=== PATIENT | male | born 1985 | race Caucasian/White ===

== ENCOUNTER 2021-02-17 20:13 | Emergency (ER) | payer SELFPAY ==
[~2021-02-17] VITALS: Ht 170.2 cm; Wt 97.5 kg
[2021-02-17 20:34] VITALS: BP 126/79
--- NOTE | 2021-02-17 21:59 | NUR ---
ATTEMPTED TO CALL PT IN LOBBY AND OUTSIDE, NO RESPONSE.
--- NOTE | 2021-02-17 22:02 | NUR ---
CALLED PT'S PHONE NUMBER ON FILE, WELL THE "PERSON TO NOTIFY", NO RESPONSE.
--- NOTE | 2021-02-17 22:06 | NUR ---
PT BROUGHT BACK FROM RADIOLOGY VIA W/C TO CHAIR [place].
[2021-02-17] MEDS ORDERED: AMOXIL/CLAVULANATE 875/125 MG 1 TAB PO ONE (23:25)
[2021-02-17] MEDS ORDERED: AMOX-1000 PO (23:29)
--- NOTE | 2021-02-17 23:30 | NUR ---
PT CLEARED FOR DISCHARGE BY DR. MAGANA. AT TIME OF DISCHARGE PT UNABLE TO BE FOUND IN CHAIR, LOBBY OR OUTSIDE. PT LEFT FACILITY WITHOUT DISCHARGE INSTRUCTIONS.
== END 2021-02-17 23:30 | disposition home or self-care (01) ==
LOC: MED 20:13
DX: S51.852A Open bite of left forearm, initial encounter (principal); W54.0XXA Bitten by dog, initial encounter; Y93.89 Activity, other specified; Y92.89 Other specified places as the place of occurrence of the external cause; Y99.8 Other external cause status
CPT/HCPCS: 73090; 99283

== ENCOUNTER 2021-07-04 22:09 | Inpatient (IN) | payer MEDICAID ==
[~2021-07-04] VITALS: Ht 170.2 cm; Wt 106.6 kg
[~2021-07-04 22:09] MED LIST: AMOX-1000 PO
[2021-07-04 22:15] VITALS: BP 133/99
--- NOTE | 2021-07-04 22:28 | NUR ---
35 YO M BIBS W C/O OF EPIGASTRIC PAIN AND HEART BURN X 1HR. REPORTS PAIN 11/29. DENIES FEVER, N/V/D CURRENTLY. PT STATED HE VOMITED 2 DAYS AGO AND THE VOMIT HAD "RED COLOR" IN IT. PHX: DENIES NKDA MEDS: DENIES
[2021-07-04] MEDS ORDERED: NACL 0.9% 2,000 ML IV ONE (23:50)
[2021-07-04] MEDS ORDERED: MORPHINE SULFATE 4 MG/ML SYR IVP ONE ×2 (23:50)
[2021-07-04] MEDS ORDERED: ONDANSETRON 4 MG/2 ML VIAL IVP ONE (23:50)
[2021-07-04] MEDS ORDERED: PIPERACILLIN/TAZOBACTAM 3.375 GM in DEXTROSE 5% 50 ML IV ONE (23:50)
[2021-07-04] MEDS ORDERED: NACL 0.9% 1,000 ML IV SCH (23:50)
[2021-07-04] MEDS ORDERED: PANTOPRAZOLE 40 MG INJ VIAL IVP ONE (23:50)
[2021-07-05 00:04] LABS: APPEARANCE,URINE SL CLOUDY (CLEAR); BILIRUBIN,URINE NEGATIVE (NEGATIVE); BLOOD, URINE 2+ (NEGATIVE); COLOR,URINE YELLOW (YELLOW); LEUKOCYTE ESTERASE ,URINE NEGATIVE (NEGATIVE); NITRITE, URINE NEGATIVE (NEGATIVE); UGLUCOSE NEGATIVE (NEGATIVE)
[2021-07-05 00:04] LABS: BASOPHILS # (AUTO) 0.1 K/uL (0.00-0.22); BASOPHILS % (AUTO) 0.5 % (0.0-2.0); EOSINOPHILS # (AUTO) 0.5 K/uL (0-0.4); EOSINOPHILS % (AUTO) 3.3 % (0.0-4.0); HEMATOCRIT 41.4 % (36-52); LYMPHOCYTES # (AUTO) 2.8 K/uL (2.0-11.5); LYMPHOCYTES % (AUTO) 19.5 % (20.5-51.1); MEAN CORPUSCULAR HEMOGLOBIN 29 pg (27-31); MEAN CORPUSCULAR HGB CONC 34 g/dL (33-37); MEAN CORPUSCULAR VOLUME 84.7 fL (80-94); MONOCYTES # (AUTO) 1.2 K/uL (0.8-1.0); MONOCYTES % (AUTO) 8.5 % (1.7-9.3); NEUTROPHILS # (AUTO) 9.7 K/uL (1.8-7.7); NEUTROPHILS % (AUTO) 68.2 % (42.2-75.2); PLATELET COUNT (AUTO) 420 K/uL (140-450); RED BLOOD CELL COUNT(AUTO) 4.88 MIL/uL (4.20-6.10); RED CELL DISTRIBUTION WIDTH 13.3 % (11.6-13.7); WHITE BLOOD COUNT (AUTO) 14.2 K/uL (4.8-10.8)
[2021-07-05] MEDS ORDERED: PIPERACILLIN/TAZOBACTAM 3.375 GM VIAL IV ONE (00:17)
[2021-07-05 00:48] LABS: ALBUMIN 4.1 g/dL (3.4-5.0); ANION GAP 14.7 (8-16); CARBON DIOXIDE 26.7 mmol/L (21-32); CREATININE 0.9 mg/dL (0.6-1.3); POTASSIUM 3.4 mmol/L (3.5-5.1); TOTAL BILIRUBIN 0.2 mg/dL (0.0-1.0)
--- NOTE | 2021-07-05 01:00 | NUR ---
Patient appears to be resting comfortably in bed. Vital Signs within normal limits. Respirations even and unlabored.
[2021-07-05 01:37] LABS: WBC,URINE 0-5 /HPF (0-5)
[2021-07-05] MEDS ORDERED: MORPHINE SULFATE 4 MG/ML SYR IVP ONE (02:10)
[2021-07-05] MEDS: NACL 0.9% 1,000 ML IV ONE ×2 (02:33→05:16)
--- NOTE | 2021-07-05 02:45 | NUR ---
CRISTIANA WALKED TO LAB
--- NOTE | 2021-07-05 03:00 | NUR ---
PT AMBULATED TO RESTROOM
--- NOTE | 2021-07-05 03:49 | NUR ---
PT MADE AWARE OF ADMISSION
--- NOTE | 2021-07-05 04:51 | NUR ---
PT IS SLEEPING
--- NOTE | 2021-07-05 05:03 | NUR ---
RECIEVED REPORT FROM CAMILLE FLORES
--- NOTE | 2021-07-05 07:16 | NUR ---
REPORT RECEIVED FROM CHEN OBRIEN. TRANSFER OF CARE AT THIS TIME
--- NOTE | 2021-07-05 07:20 | NUR ---
REPORT RECEIVED FROM CHEN OBRIEN, TRANSFER OF CARE AT THIS TIME. RECEIVED PATIENT A/OX4, RESPIRATIONS EVEN AND UNLABORED, PAIN 0/10, NSS RUNNING 20G R AC 100CC/HR. PT STATED LAST MEAL AT 1700 AT 07/04/21. DENIES ANY N/V.
--- NOTE | 2021-07-05 07:59 | NUR ---
Patient will be admitted to care of DR GALO. Admited to [facility]. Will go to room 106A. Belongings list completed. Report to ROSA ISELA OBRIEN.
[2021-07-05 08:00] VITALS: BP 120/80
--- NOTE | 2021-07-05 08:14 | NUR ---
RECEIVED ENDORSEMENT FROM ER NURSE WHILE PATIENT AMBULATE TO BATHROOM. PATIENT COME FROM HOME W/ RAPID COVID TEST RESULT NEGATIVE, DIAGNOSIS CHOLECYSTITIS. PIV RAC 20 PATENT. NS@100 INFUSING. WILL CONTINUE TO MONITOR
[2021-07-05] MEDS: PIPERACILLIN/TAZOBACTAM 3.375 GM in DEXTROSE 5% 50 ML IV SCH ×3 (08:56→22:50)
[2021-07-05] MEDS ORDERED: MAG SULF 2000 MG/WATER PREMIX 50 ML IV PRN (09:20)
[2021-07-05] MEDS ORDERED: POTASSIUM CHLORIDE 10 MEQ TABER PO PRN (09:20)
[2021-07-05] MEDS ORDERED: LORazepam 2 MG/ML VIAL IM/IVP PRN (09:25)
[2021-07-05] MEDS ORDERED: ACETAMINOPHEN 325 MG TAB PO PRN (09:25)
[2021-07-05] MEDS ORDERED: DOCUSATE SODIUM 100 MG GELCAP PO PRN (09:25)
[2021-07-05] MEDS ORDERED: ZOLPIDEM 5 MG TAB PO PRN (09:25)
[2021-07-05] MEDS ORDERED: ONDANSETRON 4 MG/2 ML VIAL IM/IVP PRN (09:25)
[2021-07-05] MEDS: NACL 0.9% 1,000 ML IV SCH ×2 (09:29→17:48)
[2021-07-05 11:29] LABS: BASOPHILS # (AUTO) 0.1 K/uL (0.00-0.22); BASOPHILS % (AUTO) 0.6 % (0.0-2.0); EOSINOPHILS # (AUTO) 0.4 K/uL (0-0.4); EOSINOPHILS % (AUTO) 3.9 % (0.0-4.0); HEMATOCRIT 38.6 % (36-52); HEMOGLOBIN 13.1 g/dL (12.0-18.0); LYMPHOCYTES % (AUTO) 22.4 % (20.5-51.1); MEAN CORPUSCULAR HEMOGLOBIN 29 pg (27-31); MEAN CORPUSCULAR HGB CONC 34 g/dL (33-37); MEAN CORPUSCULAR VOLUME 84.8 fL (80-94); MONOCYTES % (AUTO) 11.5 % (1.7-9.3); NEUTROPHILS # (AUTO) 5.6 K/uL (1.8-7.7); NEUTROPHILS % (AUTO) 61.6 % (42.2-75.2); PLATELET COUNT (AUTO) 352 K/uL (140-450); RED BLOOD CELL COUNT(AUTO) 4.56 MIL/uL (4.20-6.10); RED CELL DISTRIBUTION WIDTH 13.5 % (11.6-13.7)
[2021-07-05 11:56] LABS: PROTHROMBIN TIME 9.9 secs (10.8-13.4)
[2021-07-05 12:06] LABS: ANION GAP 11.8 (8-16); CHOL/HDL RATIO 3.4 (1-4.5); CREATININE 0.9 mg/dL (0.6-1.3); MAGNESIUM 2.2 mg/dL (1.8-2.4); PHOSPHORUS 3.6 mg/dL (2.5-4.9); POTASSIUM 3.8 mmol/L (3.5-5.1); THYROID STIMULATING HORMONE 0.62 uIU/mL (0.34-3.74)
[2021-07-05] MEDS ORDERED: LORazepam 1 MG TAB PO PRN (13:30)
--- NOTE | 2021-07-05 14:26 | NUR ---
PATIENT HAS BEEN SCREENED AND CATEGORIZED LOW NUTRITION RISK. PATIENT WILL BE SEEN WITHIN 7 DAYS OF ADMISSION. 07/11/[address]
[2021-07-05 16:00] VITALS: BP 110/71
--- NOTE | 2021-07-05 19:20 | NUR ---
RECEIVED BESIDE REPORT FROM DAY SHIFT NURSE FOR CONTINUITY OF CARE.
--- NOTE | 2021-07-05 20:17 | NUR ---
PATIENT IS TO HAVE HIDA GB VASC FLOW. PATIENT IS ON STABLE CONDITION.
[2021-07-05] MEDS: MORPHINE SULFATE 2 MG/ML SYR IVP PRN ×2 (21:29→21:33)
--- NOTE | 2021-07-05 21:29 | NUR ---
IMAGING STAFF CALLED FOR PAIN MEDICATION, PAIN MEDICATION ADMINISTERED WHILE PATIENT IS IN IMAGING ROOM.
[2021-07-06 00:14] VITALS: BP 114/77
[2021-07-06] MEDS: NACL 0.9% 1,000 ML IV SCH ×3 (03:00→18:51)
[2021-07-06] MEDS: PIPERACILLIN/TAZOBACTAM 3.375 GM in DEXTROSE 5% 50 ML IV SCH ×3 (05:05→20:45)
[2021-07-06 06:53] LABS: BASOPHILS # (AUTO) 0.1 K/uL (0.00-0.22); BASOPHILS % (AUTO) 0.9 % (0.0-2.0); EOSINOPHILS # (AUTO) 0.5 K/uL (0-0.4); EOSINOPHILS % (AUTO) 7.1 % (0.0-4.0); HEMATOCRIT 39.1 % (36-52); HEMOGLOBIN 13.1 g/dL (12.0-18.0); LYMPHOCYTES # (AUTO) 2.5 K/uL (2.0-11.5); MEAN CORPUSCULAR HEMOGLOBIN 29 pg (27-31); MEAN CORPUSCULAR HGB CONC 34 g/dL (33-37); MEAN CORPUSCULAR VOLUME 85.2 fL (80-94); MONOCYTES # (AUTO) 0.7 K/uL (0.8-1.0); MONOCYTES % (AUTO) 10.8 % (1.7-9.3); NEUTROPHILS % (AUTO) 44.2 % (42.2-75.2); PLATELET COUNT (AUTO) 350 K/uL (140-450); RED BLOOD CELL COUNT(AUTO) 4.59 MIL/uL (4.20-6.10); RED CELL DISTRIBUTION WIDTH 13.4 % (11.6-13.7); WHITE BLOOD COUNT (AUTO) 6.9 K/uL (4.8-10.8)
--- NOTE | 2021-07-06 06:53 | NUR ---
PATIENT RETURNED TO THE UNIT ON STABLE CONDITION, AWAKE, ALERT AND VERBALIZED NEEDS.
--- NOTE | 2021-07-06 07:15 | NUR ---
PATIENT IS ON STABLE CONDITION, NO COMPLAINT OF PAIN OR DISCOMFORT. PATIENT IS NPO EXCEPT FOR MEDS. IV SALINE LOCK ON RIGHT AC INTACT AND PATENT. INFUSING WELL NORMAL SALINE 0.9% AT 120ML/HR. NO SIGN/SYMPTOM OF INFECTION ON IV SITE. ENDORSED TO DAY SHIFT NURSE FOR CONTINUITY OF CARE.
--- NOTE | 2021-07-06 07:48 | NUR ---
GOT REPORT FROM THE NIGHT NURSE, PT RESTING IN BED LOOKS COMFORTABLE.[id number]
[2021-07-06 07:58] LABS: ANION GAP 11.1 (8-16); CARBON DIOXIDE 25.4 mmol/L (21-32); CREATININE 0.9 mg/dL (0.6-1.3); POTASSIUM 3.5 mmol/L (3.5-5.1)
[2021-07-06 08:02] LABS: MAGNESIUM 2.1 mg/dL (1.8-2.4); PHOSPHORUS 3.7 mg/dL (2.5-4.9)
[2021-07-06 09:07] LABS: T4 (THYROXINE) 7.8 ug/dL (4.5-12.0)
[2021-07-06 12:07] VITALS: BP 103/69
--- NOTE | 2021-07-06 15:21 | NUR ---
DC PLANNIN YRS OLD MALE PATIENT WAS ADMITTED FROM HOME WITH A DX OF SEPSIS, CHOLECYSTITIS. PATIENT HAS NO MEDICAL HISTORY. CXR SHOWED CT ABD/PELVIS SHOWED STONE NEAR THE REGION OF THE GALLBLADDER NECK WITH DISTENDED GALLBLADDER HIDA SCAN SHOWED NONSPECIFIED GALLBLADDER CONSISTENT WITH ACUTE CHOLECYSTICS,. ADMINISTERED IVF, IV ABX ZOSYN AND PAIN MEDS. CONSULTED WITH SURGEON DR PAEZ. DC PLAN TO GO HOME WHEN STABLE. CM TO FOLLOW Addendum: 07/08/21 at 1052 by Shanae Lee RN DC PLANNING: DR PAEZ PERFORMED LAP JASEN , TOLERATED WELL ,ADVANCED DIET TO REGULAR TOLERATED WELL AMBULATE TO BATHROOM , CONTINUE IVF IV ABX ZOSYN. AWAITING FOR DR PAEZ TO CLEAR PATIENT. DC PLAN TO GO HOME AND F/U WITH DR PAEZ. CM TO FOLLOW
[2021-07-06 16:00] VITALS: BP 116/67
--- NOTE | 2021-07-06 19:20 | NUR ---
REPORT GIVEN BY AM NURSE. PATIENT IS RESTING COMFORTABLY ON ROOM AIR. NO SOB NOTED. NO COMPLAINTS OF PAIN AT THIS TIME. ABLE TO AMBULATE. SAFETY MEASURES IN PLACE. VISITOR AT BEDSIDE. IVF NS INFUSING AT 120 ML/HR. REMINDED PATIENT TO NOT TAKE ANYTHING BY MOUTH POST MIDNIGHT. WILL CONTINUE TO MONITOR PT.
--- NOTE | 2021-07-06 20:43 | NUR ---
ALL 2100 SCHEDULED MEDICATIONS ADMINISTERED ORDERED.
[2021-07-06] MEDS: MORPHINE SULFATE 2 MG/ML SYR IVP PRN (23:28)
--- NOTE | 2021-07-06 23:28 | NUR ---
COMPLAINED OF MODERATE PAIN, MEDICATED.
[2021-07-07] VITALS: BP 109/76
--- NOTE | 2021-07-07 01:24 | NUR ---
ENDORSED PATIENT TO JASPER OBRIEN FOR CONTINUITY OF CARE. PLAN OF CARE DISCUSSED. PATIENT IN STABLE CONDITION.
--- NOTE | 2021-07-07 01:30 | NUR ---
RECEIVED PT FROM CAMILLE MENDOZA FOR CONTINUITY OF CARE. PT RESTING ON BED. ON ROOM AIR, BREATHING EQUAL AND UNLABORED. SKIN WARM, DRY AND INTACT. ALL PRECAUTIONS IN PLACE. CALL LIGHT WITHIN REACH. WILL CONTINUE TO MONITOR.
[2021-07-07] MEDS: NACL 0.9% 1,000 ML IV SCH ×2 (03:10→11:25)
[2021-07-07] MEDS: PIPERACILLIN/TAZOBACTAM 3.375 GM in DEXTROSE 5% 50 ML IV SCH ×3 (04:45→21:10)
[2021-07-07 07:29] LABS: BASOPHILS # (AUTO) 0.1 K/uL (0.00-0.22); EOSINOPHILS # (AUTO) 0.6 K/uL (0-0.4); EOSINOPHILS % (AUTO) 8.4 % (0.0-4.0); HEMATOCRIT 37.9 % (36-52); HEMOGLOBIN 12.9 g/dL (12.0-18.0); LYMPHOCYTES # (AUTO) 2.9 K/uL (2.0-11.5); LYMPHOCYTES % (AUTO) 42.2 % (20.5-51.1); MEAN CORPUSCULAR HEMOGLOBIN 29 pg (27-31); MEAN CORPUSCULAR HGB CONC 34 g/dL (33-37); MONOCYTES # (AUTO) 0.7 K/uL (0.8-1.0); NEUTROPHILS # (AUTO) 2.6 K/uL (1.8-7.7); NEUTROPHILS % (AUTO) 38.4 % (42.2-75.2); PLATELET COUNT (AUTO) 380 K/uL (140-450); RED BLOOD CELL COUNT(AUTO) 4.51 MIL/uL (4.20-6.10); RED CELL DISTRIBUTION WIDTH 13.2 % (11.6-13.7); WHITE BLOOD COUNT (AUTO) 6.8 K/uL (4.8-10.8)
--- NOTE | 2021-07-07 07:30 | NUR ---
RECEIVED REPORT FROM LAUNDRY HOUSEKEEPER NURSE. PT RESTING IN BED, EYES CLOSED. NO S/S OF DISTRESS. BREATHING SYMMETRICAL. CALL LIGHT 9IN REACH. ALL SAFETY ,MEASURES IN PLACE. CONSENT NOT SIGNED VIA LAUNDRY HOUSEKEEPER, PT REPORTED HE HAS NOT SPOKEN WITH MD/SURGEON ABOUT PROCEDURE AT THIS TIME. PT SCHEDULED FOR PROCEDURE AT 1300 PER LAUNDRY HOUSEKEEPER, NPO, FLUIDS RUNNING PER MD ORDER. HEPARIN WILL BE HELD FOR PROCEDURE
--- NOTE | 2021-07-07 07:34 | NUR ---
PT IS STABLE. NO ACUTE EVENTS THROUGHOUT THE NIGHT. ALL NEEDS MET. NO S/SX OF DISTRESS. ALL PRECAUTIONS IN PLACE. CALL LIGHT WITHIN REACH. ENDORSED TO AM SHIFT NURSE.
[2021-07-07 07:38] LABS: ANION GAP 11.6 (8-16); CARBON DIOXIDE 25.3 mmol/L (21-32); POTASSIUM 3.9 mmol/L (3.5-5.1)
[2021-07-07 07:50] LABS: MAGNESIUM 2.2 mg/dL (1.8-2.4)
[2021-07-07 08:00] VITALS: BP 109/70
--- NOTE | 2021-07-07 11:47 | NUR ---
SURGICAL TEAM AT BEDSIDE TO SIGNAL OPERATOR LINGUIST PT. ZOSYN STARTED PRE-PROCEDURE. PT GOING TO PROCEDURE EARLY WITH IV ANTIBIOTIC. ALL SAFETY MEASURES IN PLACE
[2021-07-07] MEDS ORDERED: GLYCOPYRROLATE 0.2 MG/ML VIAL ONE (12:26)
[2021-07-07] MEDS ORDERED: KETOROLAC 30 MG/ML VIAL ONE (12:26)
[2021-07-07] MEDS ORDERED: SEVOFLURANE 250 ML BTL INH ONE (12:26)
[2021-07-07] MEDS ORDERED: NEOSTIGMINE 1:1000 10 MG/10 ML VIAL ONE (12:26)
[2021-07-07] MEDS ORDERED: BUPIVACAINE-MPF 0.25% 30 ML VIAL INJ ONE (12:37)
[2021-07-07] MEDS ORDERED: PROPOFOL 200 MG/20 ML VIAL IV ONE ×2 (12:50)
[2021-07-07] MEDS ORDERED: ROCURONIUM 50 MG/5 ML VIAL IV ONE ×2 (12:50)
[2021-07-07] MEDS ORDERED: HYDROcodone/APAP 5/325 MG 1 TAB TAB PO PRN (14:10)
[2021-07-07] MEDS: LACTATED RINGERS 1,000 ML IV SCH ×2 (14:10→22:10)
[2021-07-07] MEDS ORDERED: fentaNYL citrate 0.05 MG/ML VIAL ONE (14:13)
[2021-07-07] MEDS ORDERED: LABETALOL 20 MG/4 ML VIAL IVP PRN (14:30)
[2021-07-07] MEDS ORDERED: LACTATED RINGERS 1,000 ML IV PRN (14:30)
[2021-07-07] MEDS ORDERED: METOCLOPRAMIDE 10 MG/2 ML INJ VIAL IVP PRN (14:30)
[2021-07-07] MEDS ORDERED: hydrALAZINE 20 MG/ML VIAL IVP PRN (14:30)
[2021-07-07] MEDS: HYDROmorphone 1 MG/ML AMP IVP PRN ×4 (14:42→15:13)
[2021-07-07] MEDS ORDERED: HYDROmorphone PFS 2 MG/ML SYR ONE (14:44)
[2021-07-07 16:00] VITALS: BP_SYST 112; BP_SYST 133; BP_DIAS 72; BP_DIAS 76
--- NOTE | 2021-07-07 16:00 | NUR ---
PT BROUGHT BACK TO [facility]. PT STABLE. PROCEDURAL SITES ARE CLEAN, TERMINAL MAKEUP OPERATOR, SECURED WITH DERMABOND PER SURGICAL. CALL LIGHT IN REACH. ALL SAFETY MEASURES IN PLACE. FAMILY AT BEDSIDE
[2021-07-07] MEDS: MORPHINE SULFATE 4 MG/ML SYR IVP PRN (18:55)
--- NOTE | 2021-07-07 19:15 | NUR ---
ENDORSED PT TO SECURE SOFTWARE ASSESSOR NURSE EDNA OBRIEN. PT STABLE. CALL LIGHT IN REACH. ALL SAFETY MEASURES IN PLACE. BREATHING SYMMETRICAL. PT WAS MEDICATED FOR PAIN STATED 10/30 IN ABDOMEN
--- NOTE | 2021-07-07 19:49 | NUR ---
RECEIVED BEDSIDE REPORT FROM DAY SHIFT RN FOR CONTINUITY OF CARE. PT IS SLEEPING IN BED COMFORTABLY. PT IS NOT IN ANY ACUTE DISTRESS. BREATHING EVEN AND UNLABORED. PT HAS RIGHT AC 20 GAUGE WITH LR 125 ML/HR. CALL LIGHT WITHIN REACH. ALL SAFETY MEASURES TAKEN. WILL CONTINUE TO MONITOR THE PT.
--- NOTE | 2021-07-07 21:15 | NUR ---
ALL DUE MEDS GIVEN. NO ADVERSE REACTION NOTED. WILL CONTINUE TO MONITOR THE PT.
--- NOTE | 2021-07-08 00:16 | NUR ---
PT IS SLEEPING IN BED COMFORTABLY. PT IS NOT IN ANY DISTRESS. BREATHING EVEN AND UNLABORED. IVF RUNNING RUNNING PER MD ORDER. CALL LIGHT WITHIN REACH. ALL SAFETY MEASURES TAKEN. WILL CONTINUE TO MONITOR THE PT.
[2021-07-08] MEDS: MORPHINE SULFATE 4 MG/ML SYR IVP PRN ×2 (00:49→06:45)
--- NOTE | 2021-07-08 00:55 | NUR ---
PT WAS COMPLAINING OF 10/10 PAIN. MORPHINE WAS GIVEN PER MD ORDER. NO OTHER COMPLAINS. WILL CONTINUE TO MONITOR THE PT.
[2021-07-08] MEDS: LACTATED RINGERS 1,000 ML IV SCH (01:03)
[2021-07-08 04:00] VITALS: BP 132/85
[2021-07-08] MEDS: PIPERACILLIN/TAZOBACTAM 3.375 GM in DEXTROSE 5% 50 ML IV SCH (05:09)
[2021-07-08 07:05] LABS: BASOPHILS % (AUTO) 0.4 % (0.0-2.0); EOSINOPHILS # (AUTO) 0.2 K/uL (0-0.4); EOSINOPHILS % (AUTO) 2.2 % (0.0-4.0); HEMATOCRIT 38.4 % (36-52); LYMPHOCYTES # (AUTO) 1.6 K/uL (2.0-11.5); LYMPHOCYTES % (AUTO) 15.3 % (20.5-51.1); MEAN CORPUSCULAR HEMOGLOBIN 29 pg (27-31); MEAN CORPUSCULAR HGB CONC 34 g/dL (33-37); MEAN CORPUSCULAR VOLUME 84.3 fL (80-94); MONOCYTES # (AUTO) 1.3 K/uL (0.8-1.0); MONOCYTES % (AUTO) 12.4 % (1.7-9.3); NEUTROPHILS # (AUTO) 7.4 K/uL (1.8-7.7); NEUTROPHILS % (AUTO) 69.7 % (42.2-75.2); PLATELET COUNT (AUTO) 397 K/uL (140-450); RED BLOOD CELL COUNT(AUTO) 4.55 MIL/uL (4.20-6.10); RED CELL DISTRIBUTION WIDTH 13.3 % (11.6-13.7); WHITE BLOOD COUNT (AUTO) 10.6 K/uL (4.8-10.8)
[2021-07-08 07:24] LABS: MAGNESIUM 1.8 mg/dL (1.8-2.4); PHOSPHORUS 3.6 mg/dL (2.5-4.9)
--- NOTE | 2021-07-08 07:30 | NUR ---
RECEIVED PT FROM CAMILLE MCMANUS. PT IN AAOX4, PT HAS 4 SURGICAL SITE CLOSED WITH DERMABOND, DEDRA, WELL APPROXIMATED. NO S/S OF REDNESS OR SWELLING. PT DENIES PAIN. TELEMONITOR IN PLACE READING NSR. RESP E/U. ON R/A. NO SOB OR COUGH. ABDOMEN SOFT, TENDER, ROUND, NONDISTENDED. BOWEL SOUND ACTIVE X 4 QUADS, DENIES N/V/D/C. PT STATES SINCE PROCEDURE HE HAS NOT PASSED GAS OR HAD A BM. DISTAL PULSES STRONG, SKIN WARM, CAP REFILL <3 SECS. NO EDEMA. IV CATH TO RAC 2O FLUSHED, PATENT, WNL, WITH LR RUNNING AT 125ML/HR. PT VOIDS FREELY, AMBULATES INDEPENDENTLY, MAINTAINING CLEAR LIQUID DIET. CALL LIGHT WITHIN REACH. BED IN LOWEST POSITION. BILATERAL SIDE-RAILS UP X2.
--- NOTE | 2021-07-08 07:30 | NUR ---
ENDORSED PT TO DAY SHIFT RN FOR CONTINUITY OF CARE. PT IS STABLE.
[2021-07-08 07:31] LABS: ALBUMIN 3.1 g/dL (3.4-5.0); ANION GAP 10.3 (8-16); POTASSIUM 3.3 mmol/L (3.5-5.1); TOTAL BILIRUBIN 0.5 mg/dL (0.0-1.0)
[2021-07-08 08:00] VITALS: BP 119/78
[2021-07-08] MEDS ORDERED: AMOX-999 PO (08:04)
[2021-07-08] MEDS ORDERED: IBUP-1842 PO (08:04)
--- NOTE | 2021-07-08 09:59 | NUR ---
NORCO 5MG PO PRN GIVEN FOR THROBBING ABDOMINAL PAIN 07/30. EXTRA FLUIDS GIVEN AND ENCOURAGED. PT EDUCATED TO AMBULATE AND INCREASE OVERALL ACTIVITY. PT VERBALIZED UNDERSTANDING.
[2021-07-08 11:11] VITALS: BP 119/78
--- NOTE | 2021-07-08 11:14 | NUR ---
DC PLANNING PATIENT IS A 35 YR OLD MALE ADMITTED TO [facility] ON 07/05 FOR A DX OF SEPSIS, CHOLECYSTITIS. SW MET WITH PATIENT AT BEDSIDE TO GATHER COLLATERAL INFORMATION. PATIENT REPORTS RENTING A ROOM IN HIS MOTHER APT AND RESIDES THERE WITH HIS MOTHER AND PARTNER. PATIENT REPORTS EMERGENCY CONTACT AND MEDICAL DECISION MAKER LUBA LEUNG (PARTNER) [phone]. PATIENT DENIES HAVING AD IN PLACE AND ACCEPTED PACKET PROVIDED BY SW. PATIENT REPORTS INCONSISTENCY WITH MEETING WITH PCP AND REPORTS LAST VISIT "FIVE OR SO YRS PRIOR". PATIENT REPORTED RECENTLY APPLYING FOR EMERGENCY MEDI-JESSICA HE TYPICALLY DOESN'T GET SICK. PATIENT DENIES CURRENTLY TAKING MEDIATIONS. PATIENT REPORTS BEING INDEPENDENT AND DENIES DME ASSISTANCE. PATIENT REPORTS DC PLAN IS TO RETURN HOME AND THAT PARTNER WILL BE PROVIDING TRANSPORTATION AND AIDING IN HIS CARE IF NEEDED. SW INQUIRED ON ADDITIONAL RESOURCES NEEDED, PATIENT DECLINED.
--- NOTE | 2021-07-08 11:46 | NUR ---
DISCHARGE INSTRUCTIONS REVIEWED WITH PT. ALL QUESTIONS AND CONCERNS ADDRESSED. PT GIVEN DR. Marlena PAEZ'S CONTACT NUMBER TO ARRANGE A FOLLOW UP APPT [facility] . PT INSTRUCTED THAT PRESCRIPTIONS HAVE BEEN SENT ELECTRONICALLY TO THE PT'S INDICATED PHARMACY. PT VERBALIZED UNDERSTANDING. ALL FORMS SIGNED AND PICTURE OF SURGICAL SITE TAKEN.
--- NOTE | 2021-07-08 13:00 | NUR ---
PT DISCHARGED IN NO DISTRESS. IV CATH TO RAC REMOVED INTACT. SITE COVERED AND BANDAID. PT TOOK ALL BELONGING WITH HIM AND DENIES PAIN UPON DISCHARGE. PT TAKEN TO LOBBY IN W/C BY THIS RN.
== END 2021-07-08 13:00 | disposition home or self-care (01) | DRG 710 ==
LOC: MED 22:09 → MMU 07-05 03:29 → MTU 07-05 05:22
PROC: 0DNU4ZZ Release Omentum, Percutaneous Endoscopic Approach (ICD-10-PCS; 2021-07-07)
PROC: 0FT44ZZ Resection of Gallbladder, Percutaneous Endoscopic Approach (ICD-10-PCS; principal; 2021-07-07 10:30)
DX: A41.9 Sepsis, unspecified organism (principal); K80.00 Calculus of gallbladder with acute cholecystitis without obstruction; N39.0 Urinary tract infection, site not specified; E66.9 Obesity, unspecified; E86.0 Dehydration; Z20.822 Contact with and (suspected) exposure to COVID-19; E87.6 Hypokalemia; Z68.36 Body mass index [BMI] 36.0-36.9, adult; Z79.2 Long term (current) use of antibiotics; Z79.899 Other long term (current) drug therapy
CPT/HCPCS: 36415; 71045; 78445; 80048; 80053; 81001; 83036; 83605; 83690; 83735; 83880; 84100; 84134; 84436; 84443; 85025; 85610; 85730; 86886; 86900; 86901; 87040; 88304; 96361; 96365; 96375; 96376; 99285; C1887; C9113; J1170; J1644; J1885; J2270; J2405; J2543; J2704; J2710; J3010; J3490; J7030; J7060; Q0092; Q9967

== ENCOUNTER 2021-12-21 16:49 | Emergency (ER) | payer SELFPAY ==
[~2021-12-21] VITALS: Ht 170.2 cm; Wt 111.1 kg
[~2021-12-21 16:49] MED LIST changes: -AMOX-1000 PO; +AMOX-999 PO; +IBUP-1842 PO
[2021-12-21 17:15] VITALS: BP 136/89
--- NOTE | 2021-12-21 17:21 | NUR ---
PT AMB TO BED 7.
--- NOTE | 2021-12-21 17:30 | NUR ---
BIB SELF C/O 09/29 RUQ ABNDOMINAL PAIN, HEART BURN X 1 WEEK. BLOOD IN STOOL 2 DAYS AGO. PMH: GALL BLADDER REMOVAL IN JUNE 2021
[2021-12-21] MEDS ORDERED: KETOROLAC 30 MG/ML VIAL IM ONE (17:55)
[2021-12-21] MEDS ORDERED: DICYCLOMINE HCL LIQUID 20 MG, ALUMINUM HYD/MAG/SIMETHICONE 30 ML, LIDOCAINE VISCOUS 2% ... PO ONE ×3 (17:55)
[2021-12-21] MEDS ORDERED: ALUMINUM HYD/MAG/SIMETHICONE 30 ML UDC ONE (17:59)
[2021-12-21] MEDS ORDERED: DICYCLOMINE HCL LIQUID 10 MG/5 ML UDC ONE (17:59)
--- NOTE | 2021-12-21 18:00 | NUR ---
PT TAKEN TO CT VIA WHEELCHAIR
--- NOTE | 2021-12-21 18:08 | NUR ---
PT BROUGHT BACK VIA WHEELCHAIR
--- NOTE | 2021-12-21 18:12 | NUR ---
LAB AT BEDSIDE
[2021-12-21 18:24] LABS: BASOPHILS # (AUTO) 0.1 K/uL (0.00-0.22); EOSINOPHILS # (AUTO) 0.5 K/uL (0-0.4); HEMATOCRIT 39.7 % (36-52); HEMOGLOBIN 13.6 g/dL (12.0-18.0); LYMPHOCYTES # (AUTO) 2.5 K/uL (2.0-11.5); LYMPHOCYTES % (AUTO) 32.4 % (20.5-51.1); MEAN CORPUSCULAR HEMOGLOBIN 29 pg (27-31); MEAN CORPUSCULAR HGB CONC 34 g/dL (33-37); MEAN CORPUSCULAR VOLUME 83.3 fL (80-94); MONOCYTES # (AUTO) 0.7 K/uL (0.8-1.0); NEUTROPHILS % (AUTO) 51.6 % (42.2-75.2); PLATELET COUNT (AUTO) 385 K/uL (140-450); RED BLOOD CELL COUNT(AUTO) 4.77 MIL/uL (4.20-6.10); RED CELL DISTRIBUTION WIDTH 14.5 % (11.6-13.7); WHITE BLOOD COUNT (AUTO) 7.8 K/uL (4.8-10.8)
--- NOTE | 2021-12-21 18:32 | NUR ---
Patient moved to [facility]
[2021-12-21 19:11] LABS: ALBUMIN 3.3 g/dL (3.4-5.0); ANION GAP 12.8 (8-16); CARBON DIOXIDE 27.1 mmol/L (21-32); CREATININE 1.1 mg/dL (0.6-1.3); POTASSIUM 3.9 mmol/L (3.5-5.1); TOTAL BILIRUBIN 0.2 mg/dL (0.0-1.0)
--- NOTE | 2021-12-21 19:30 | NUR ---
PATIETN TO [facility]
[2021-12-21] MEDS ORDERED: MAG-27 PO (19:58)
[2021-12-21] MEDS ORDERED: BEN10 PO (19:58)
[2021-12-21 20:36] VITALS: BP 124/80
--- NOTE | 2021-12-21 20:36 | NUR ---
Patient discharged with v/s stable. Written and verbal after care instructions given and explained. Patient alert, oriented and verbalized understanding of instructions. Ambulatory with steady gait. All questions addressed prior to discharge. ID band removed. Patient advised to follow up with PMD. Rx of BENTYL AND MYLANTA MAX given. Patient educated on indication of medication including possible reaction and side effects. Opportunity to ask questions provided and answered.
== END 2021-12-21 20:36 | disposition home or self-care (01) ==
LOC: MED 16:49
DX: R10.11 Right upper quadrant pain (principal); Z90.49 Acquired absence of other specified parts of digestive tract
CPT/HCPCS: 36415; 74176; 80053; 83690; 85025; 96372; 99284; J1885